=== PATIENT | male | born 1950 | race Caucasian/White ===

== ENCOUNTER 2019-06-03 02:10 | Outpatient (RCR) | payer MEDICARE, BC, SELFPAY ==
[2019-06-03] MEDS: Normal Saline Flush 10 ML SYR IVP (10:47)
[2019-06-03 10:56] LABS: Abs Immature Grans 0.01 k/cumm (0.0-0.09); Absolute Basophil Count 0.03 k/cumm (0.0-0.2); Absolute Lymphocyte Count 1.61 k/cumm (1.2-3.4); Absolute Monocyte Count 0.47 k/cumm (0.11-0.7); Absolute Neutrophil Count 4.58 k/cumm (1.2-6.7); Basophils % 0.4; Eosinophils % 2.9; HCT 41.7 % (40.0-50.0); HGB 14.1 g/dL (13.5-17.5); Immature Grans % 0.1 %; Lymphocytes % 23.3; Mean Corp. HGB Concentration 33.8 g/dL (32.0-36.0); Mean Corpuscular Hemoglobin 30.8 pg (27.0-33.0); Mean Platelet Volume 10.1 fL (8.0-11.0); Monocytes % 6.8; Neutrophils % 66.5; Platelet Count 244 x1000/uL (130-400); RBC 4.58 m/cumm (4.50-6.00); RBC Distribution Width 12.6 % (11.8-14.1)
[2019-06-03 11:16] LABS: ALT 40 U/L (16-63); AST 22 U/L (15-37); Albumin 3.8 g/dL (3.4-5.0); Alkaline Phosphatase 103 U/L (46-116); Anion Gap 7.3 mmol/L (3-11); BUN 16 mg/dL (7-18); Bilirubin, Total 0.4 mg/dL (0.2-1.0); CO2 28.7 mmol/L (21.0-32.0); CREATININE 0.92 mg/dL (0.70-1.30); Calcium 9.1 mg/dL (8.5-10.1); Chloride 104 mmol/L (98-107); Glucose 105 mg/dL (74-106); Potassium 4.1 mmol/L (3.5-5.1); Sodium 140 mmol/L (136-145); Total Protein 7.1 g/dL (6.4-8.2)
== END 2019-06-07 23:59 | disposition home or self-care (01) ==
LOC: INF 02:10
PROVIDERS: PCP Family Medicine; Visit Provider Internal Medicine Hematology & Oncology
DX: C32.9 Malignant neoplasm of larynx, unspecified (principal); Z45.2 Encounter for adjustment and management of vascular access device
CPT/HCPCS: 36591; 80053; 85025

== ENCOUNTER 2019-07-01 01:26 | Outpatient (RCR) | payer MEDICARE, BC, SELFPAY ==
[2019-06-10] MEDS: Normal Saline Flush 10 ML SYR IVP (11:45)
[2019-06-10] MEDS: Heparin 500 UNITS/5 ML SYRINGE IV (11:45)
[2019-06-10 12:05] LABS: Abs Immature Grans 0.04 k/cumm (0.0-0.09); Absolute Basophil Count 0.03 k/cumm (0.0-0.2); Absolute Eosinophil Count 0.12 k/cumm (0.0-0.7); Absolute Monocyte Count 0.39 k/cumm (0.11-0.7); Absolute Neutrophil Count 3.59 k/cumm (1.2-6.7); Basophils % 0.5; Eosinophils % 2.2; HCT 38.3 % (40.0-50.0); HGB 12.9 g/dL (13.5-17.5); Immature Grans % 0.7 %; Lymphocytes % 23.8; Mean Corp. HGB Concentration 33.7 g/dL (32.0-36.0); Mean Corpuscular Hemoglobin 30.8 pg (27.0-33.0); Mean Corpuscular Volume 91.4 fL (80-95); Mean Platelet Volume 10.5 fL (8.0-11.0); Monocytes % 7.1; Neutrophils % 65.7; Platelet Count 197 x1000/uL (130-400); RBC 4.19 m/cumm (4.50-6.00); RBC Distribution Width 12.4 % (11.8-14.1); White Blood Cell Count 5.47 k/cumm (4.4-10.8)
[2019-06-10 12:23] LABS: ALT 21 U/L (16-63); AST 14 U/L (15-37); Albumin 3.4 g/dL (3.4-5.0); Alkaline Phosphatase 82 U/L (46-116); Anion Gap 6.1 mmol/L (3-11); BUN 10 mg/dL (7-18); Bilirubin, Total 0.6 mg/dL (0.2-1.0); CO2 29.9 mmol/L (21.0-32.0); Calcium 8.9 mg/dL (8.5-10.1); Chloride 103 mmol/L (98-107); Glucose 98 mg/dL (74-106); Potassium 4.2 mmol/L (3.5-5.1); Sodium 139 mmol/L (136-145); Total Protein 6.7 g/dL (6.4-8.2)
[2019-06-17] MEDS: Normal Saline Flush 10 ML SYR IVP (12:05)
[2019-06-17 12:33] LABS: Abs Immature Grans 0.02 k/cumm (0.0-0.09); Absolute Basophil Count 0.02 k/cumm (0.0-0.2); Absolute Lymphocyte Count 1.04 k/cumm (1.2-3.4); Absolute Monocyte Count 0.33 k/cumm (0.11-0.7); Basophils % 0.5; Eosinophils % 2.6; HGB 12.6 g/dL (13.5-17.5); Immature Grans % 0.5 %; Lymphocytes % 26.6; Mean Corp. HGB Concentration 33.2 g/dL (32.0-36.0); Mean Corpuscular Hemoglobin 30.3 pg (27.0-33.0); Mean Corpuscular Volume 91.3 fL (80-95); Mean Platelet Volume 10.3 fL (8.0-11.0); Monocytes % 8.4; Neutrophils % 61.4; Platelet Count 202 x1000/uL (130-400); RBC 4.16 m/cumm (4.50-6.00); RBC Distribution Width 12.7 % (11.8-14.1); White Blood Cell Count 3.91 k/cumm (4.4-10.8)
[2019-06-17 13:27] LABS: ALT 24 U/L (16-63); AST 19 U/L (15-37); Albumin 3.5 g/dL (3.4-5.0); Alkaline Phosphatase 87 U/L (46-116); Anion Gap 6.2 mmol/L (3-11); BUN 15 mg/dL (7-18); Bilirubin, Total 0.5 mg/dL (0.2-1.0); CO2 28.8 mmol/L (21.0-32.0); CREATININE 0.91 mg/dL (0.70-1.30); Chloride 103 mmol/L (98-107); Glucose 94 mg/dL (74-106); Potassium 4.2 mmol/L (3.5-5.1); Sodium 138 mmol/L (136-145); Total Protein 6.7 g/dL (6.4-8.2)
[2019-06-24] MEDS: Normal Saline Flush 10 ML SYR IVP (09:57)
[2019-06-24] MEDS: Heparin 500 UNITS/5 ML SYRINGE IV (09:58)
[2019-06-24 10:07] LABS: Abs Immature Grans 0.02 k/cumm (0.0-0.09); Absolute Basophil Count 0.03 k/cumm (0.0-0.2); Absolute Eosinophil Count 0.05 k/cumm (0.0-0.7); Absolute Lymphocyte Count 0.67 k/cumm (1.2-3.4); Absolute Monocyte Count 0.54 k/cumm (0.11-0.7); Absolute Neutrophil Count 5.31 k/cumm (1.2-6.7); Basophils % 0.5; Eosinophils % 0.8; HCT 36.7 % (40.0-50.0); HGB 12.5 g/dL (13.5-17.5); Immature Grans % 0.3 %; Lymphocytes % 10.1; Mean Corp. HGB Concentration 34.1 g/dL (32.0-36.0); Mean Corpuscular Hemoglobin 31.3 pg (27.0-33.0); Mean Corpuscular Volume 91.8 fL (80-95); Mean Platelet Volume 9.9 fL (8.0-11.0); Monocytes % 8.2; Neutrophils % 80.1; Platelet Count 207 x1000/uL (130-400); White Blood Cell Count 6.62 k/cumm (4.4-10.8)
[2019-06-24 10:16] LABS: ALT 18 U/L (16-63); AST 15 U/L (15-37); Albumin 3.4 g/dL (3.4-5.0); Alkaline Phosphatase 84 U/L (46-116); Anion Gap 7.1 mmol/L (3-11); BUN 13 mg/dL (7-18); Bilirubin, Total 0.6 mg/dL (0.2-1.0); CO2 28.9 mmol/L (21.0-32.0); CREATININE 1.06 mg/dL (0.70-1.30); Calcium 8.7 mg/dL (8.5-10.1); Chloride 103 mmol/L (98-107); Glucose 116 mg/dL (74-106); Sodium 139 mmol/L (136-145); Total Protein 6.7 g/dL (6.4-8.2)
[2019-07-01] MEDS: Normal Saline Flush 10 ML SYR IVP (10:29)
[2019-07-01] MEDS: Heparin 500 UNITS/5 ML SYRINGE IV (10:30)
[2019-07-01 11:04] LABS: ALT 16 U/L (16-63); AST 12 U/L (15-37); Albumin 3.1 g/dL (3.4-5.0); Alkaline Phosphatase 73 U/L (46-116); Anion Gap 6.4 mmol/L (3-11); BUN 26 mg/dL (7-18); Bilirubin, Total 0.5 mg/dL (0.2-1.0); CO2 28.6 mmol/L (21.0-32.0); CREATININE 1.09 mg/dL (0.70-1.30); Calcium 8.8 mg/dL (8.5-10.1); Chloride 101 mmol/L (98-107); Glucose 102 mg/dL (74-106); Potassium 4.7 mmol/L (3.5-5.1); Sodium 136 mmol/L (136-145); Total Protein 6.7 g/dL (6.4-8.2)
[2019-07-01 12:23] LABS: Abs Immature Grans 0.01 k/cumm (0.0-0.09); Absolute Basophil Count 0.04 k/cumm (0.0-0.2); Absolute Eosinophil Count 0.05 k/cumm (0.0-0.7); Absolute Lymphocyte Count 0.57 k/cumm (1.2-3.4); Absolute Monocyte Count 1.17 k/cumm (0.11-0.7); Absolute Neutrophil Count 4.42 k/cumm (1.2-6.7); Basophils % 0.6; Eosinophils % 0.8; HCT 36.7 % (40.0-50.0); HGB 12.7 g/dL (13.5-17.5); Immature Grans % 0.2 %; Lymphocytes % 9.1; Mean Corp. HGB Concentration 34.6 g/dL (32.0-36.0); Mean Corpuscular Hemoglobin 31.7 pg (27.0-33.0); Mean Corpuscular Volume 91.5 fL (80-95); Mean Platelet Volume 10.4 fL (8.0-11.0); Monocytes % 18.7; Neutrophils % 70.6; Platelet Count 214 x1000/uL (130-400); RBC 4.01 m/cumm (4.50-6.00); RBC Distribution Width 13.2 % (11.8-14.1); White Blood Cell Count 6.26 k/cumm (4.4-10.8)
== END 2019-07-06 23:59 | disposition home or self-care (01) ==
LOC: INF 01:26
PROVIDERS: PCP Family Medicine; Visit Provider Internal Medicine Hematology & Oncology
DX: C32.9 Malignant neoplasm of larynx, unspecified (principal); Z45.2 Encounter for adjustment and management of vascular access device
CPT/HCPCS: 36591; 80053; 85025

== ENCOUNTER 2019-07-22 01:02 | Outpatient (RCR) | payer MEDICARE, BC, SELFPAY ==
[2019-07-08 11:56] LABS: Abs Immature Grans 0.01 k/cumm (0.0-0.09); Absolute Basophil Count 0.04 k/cumm (0.0-0.2); Absolute Eosinophil Count 0.08 k/cumm (0.0-0.7); Absolute Lymphocyte Count 0.54 k/cumm (1.2-3.4); Absolute Monocyte Count 0.65 k/cumm (0.11-0.7); Absolute Neutrophil Count 3.94 k/cumm (1.2-6.7); Basophils % 0.8; Eosinophils % 1.5; HCT 35.4 % (40.0-50.0); HGB 12.1 g/dL (13.5-17.5); Immature Grans % 0.2 %; Lymphocytes % 10.3; Mean Corp. HGB Concentration 34.2 g/dL (32.0-36.0); Mean Corpuscular Hemoglobin 31.1 pg (27.0-33.0); Mean Platelet Volume 9.5 fL (8.0-11.0); Monocytes % 12.4; Neutrophils % 74.8; Platelet Count 222 x1000/uL (130-400); RBC 3.89 m/cumm (4.50-6.00); RBC Distribution Width 13.4 % (11.8-14.1); White Blood Cell Count 5.26 k/cumm (4.4-10.8)
[2019-07-08 12:05] LABS: ALT 22 U/L (16-63); AST 14 U/L (15-37); Albumin 2.9 g/dL (3.4-5.0); Alkaline Phosphatase 74 U/L (46-116); BUN 19 mg/dL (7-18); Bilirubin, Total 0.3 mg/dL (0.2-1.0); CREATININE 0.89 mg/dL (0.70-1.30); Calcium 8.8 mg/dL (8.5-10.1); Chloride 101 mmol/L (98-107); Glucose 109 mg/dL (74-106); Potassium 4.1 mmol/L (3.5-5.1); Sodium 137 mmol/L (136-145); Total Protein 6.6 g/dL (6.4-8.2)
[2019-07-08] MEDS: Normal Saline Flush 10 ML SYR IVP (13:35)
[2019-07-08] MEDS: Heparin 500 UNITS/5 ML SYRINGE IV (13:36)
[2019-07-15] MEDS: Heparin 500 UNITS/5 ML SYRINGE IV (10:30)
[2019-07-15] MEDS: Normal Saline Flush 10 ML SYR IVP (11:25)
[2019-07-15 12:00] LABS: Abs Immature Grans 0.01 k/cumm (0.0-0.09); Absolute Basophil Count 0.01 k/cumm (0.0-0.2); Absolute Eosinophil Count 0.02 k/cumm (0.0-0.7); Absolute Lymphocyte Count 0.38 k/cumm (1.2-3.4); Absolute Monocyte Count 0.59 k/cumm (0.11-0.7); Absolute Neutrophil Count 2.89 k/cumm (1.2-6.7); Basophils % 0.3; Eosinophils % 0.5; HCT 33.3 % (40.0-50.0); HGB 11.1 g/dL (13.5-17.5); Immature Grans % 0.3 %; Lymphocytes % 9.7; Mean Corp. HGB Concentration 33.3 g/dL (32.0-36.0); Mean Corpuscular Hemoglobin 30.7 pg (27.0-33.0); Mean Corpuscular Volume 92.2 fL (80-95); Mean Platelet Volume 9.6 fL (8.0-11.0); Monocytes % 15.1; Neutrophils % 74.1; Platelet Count 224 x1000/uL (130-400); RBC 3.61 m/cumm (4.50-6.00); RBC Distribution Width 14.1 % (11.8-14.1)
[2019-07-15 12:15] LABS: ALT 21 U/L (16-63); AST 11 U/L (15-37); Albumin 2.8 g/dL (3.4-5.0); Alkaline Phosphatase 71 U/L (46-116); Anion Gap 3.3 mmol/L (3-11); BUN 17 mg/dL (7-18); Bilirubin, Total 0.2 mg/dL (0.2-1.0); CO2 32.7 mmol/L (21.0-32.0); CREATININE 0.81 mg/dL (0.70-1.30); Calcium 8.9 mg/dL (8.5-10.1); Chloride 104 mmol/L (98-107); Glucose 85 mg/dL (74-106); Potassium 4.1 mmol/L (3.5-5.1); Sodium 140 mmol/L (136-145); Total Protein 6.3 g/dL (6.4-8.2)
[2019-07-22] MEDS: Heparin 500 UNITS/5 ML SYRINGE IV (11:32)
[2019-07-22] MEDS: Normal Saline Flush 10 ML SYR IVP (11:32)
[2019-07-22 11:41] LABS: Absolute Eosinophil Count 0.03 k/cumm (0.0-0.7); Absolute Lymphocyte Count 0.49 k/cumm (1.2-3.4); Absolute Monocyte Count 0.52 k/cumm (0.11-0.7); Eosinophils % 1.2; HCT 33.7 % (40.0-50.0); HGB 11.5 g/dL (13.5-17.5); Lymphocytes % 19.3; Mean Corp. HGB Concentration 34.1 g/dL (32.0-36.0); Mean Corpuscular Hemoglobin 31.9 pg (27.0-33.0); Mean Corpuscular Volume 93.6 fL (80-95); Mean Platelet Volume 9.2 fL (8.0-11.0); Monocytes % 20.5; Platelet Count 190 x1000/uL (130-400); RBC Distribution Width 15.2 % (11.8-14.1); White Blood Cell Count 2.54 k/cumm (4.4-10.8)
[2019-07-22 11:57] LABS: ALT 28 U/L (16-63); AST 14 U/L (15-37); Albumin 2.8 g/dL (3.4-5.0); Alkaline Phosphatase 73 U/L (46-116); BUN 18 mg/dL (7-18); Bilirubin, Total 0.2 mg/dL (0.2-1.0); Calcium 8.6 mg/dL (8.5-10.1); Chloride 105 mmol/L (98-107); Glucose 112 mg/dL (74-106); Potassium 3.6 mmol/L (3.5-5.1); Sodium 142 mmol/L (136-145); Total Protein 6.6 g/dL (6.4-8.2)
== END 2019-08-06 23:59 | disposition home or self-care (01) ==
LOC: INF 01:02
PROVIDERS: PCP Family Medicine; Visit Provider Internal Medicine Hematology & Oncology
DX: C32.9 Malignant neoplasm of larynx, unspecified (principal); Z45.2 Encounter for adjustment and management of vascular access device
CPT/HCPCS: 36591; 80053; 85025

== ENCOUNTER 2020-02-24 01:19 | Outpatient (CLI) | payer MEDICARE, BC, SELFPAY ==
--- NOTE | 2020-02-24 | DI.RAD_ITS ---
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 CONTRAST MATERIAL: Oral barium contrast was administered. COMPARISON: No exams were available for comparison FINDINGS: Multiple consistencies of barium were administered. Some molecular pooling was seen with all consis tencies. There was laryngeal penetration with all consistencies. Scott aspiration was observed with thinner consistency. The patient swallowed a barium tablet without difficulty, which passed into th e stomach. Speech pathology report to follow. IMPRESSION: Laryngeal penetration and aspiration, worse with thinner consistency barium. Please see speech patho logy report. Fluoro Time: 2 minutes 40 seconds
[2020-02-24] MEDS: Barium Sulfate 81% w/w for Oral Suspension 148 GM BTL PO (14:53)
[2020-02-24] MEDS: Barium Sulfate 40% W/V 240 ML BTL PO (14:54)
[2020-02-24] MEDS: Barium Sulfate 700 MG TAB PO (14:55)
[2020-02-24] MEDS: Barium Sulfate Oral Paste 40% W/V 230 ML TUBE PO (14:55)
--- NOTE | 2020-03-24 12:57 | ST.MBS ---
Modified Barium Swallow Date of service: 02/24/20 Study Findings: Ordering Provider: Frantz Gonzales Admission Date: 02/24/20 : 1950 Age: 70 HPI: Patient is a 70-year-old male, referred for an VFSS/MBSS to assess oropharyngeal swallowing ability. 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 (See report dated 02/19/20 for further details) Subjective: Patient reports reduced pain near pharynx relative to initial evaluation with this UTILITY LOCATE TECHNICIAN at [facility] on 02/18. Patient reports improving taste, however continues to have difficulties with his vocal quality and consistent coughing after swallowing. Patient endorses the following as continuing overt s/sx: Nasal regurgitation with increased volume of intake, coughing pills if taken multiple at a time, indicates salads, celery nuts, popcorn, and majority of red meats are difficult to swallow; ice cream, pudding, warm soup, and most drinks are easy to swallow. Patient indicates globus sensation and gestures towards pharyngeal area with intake of most solid foods. Patient has feeding tube present, however is eager to get this removed, as he is not currently using it. MDADI: Global score: 4 Scores range from 1-5 (extremely low functioning to extremely high functioning) Composite score: 58.9 Scores range from 20-100 (extremely low functioning to high functioning) Objective: Videofluoroscopic Swallow Study (VFSS) was conducted in the lateral and [id number] projections by Speech-Language Pathologist, in collaboration with Radiologist, to evaluate oropharyngeal swallow function. Fluoro Time: 2 minutes 40 seconds Anatomic view under fluoroscopy: WFL PO barium contrast trials: Oral barium Oral water soluble contrast was administered. Specifically, Varibar thin liquid (40% w/v), Varibar nectar/mildly thick liquid (40% w/v), Varibar thin honey (moderately-thick) liquid (40% w/v), Varibar pudding (40% w/v), solid coated in Varibar pudding, and 13 mm barium tablet. Oral phase findings: Lip closure: 0-no labial escape Tongue control: 0-cohesive bolus between tongue to palatal seal Bolus preparation: 1-slow, prolonged chewing/mashing with complete recollection Bolus transport/Lingual Motion: 0-brisk tongue motion Oral residue: 0-complete oral clearance Pharyngeal phase findings: Initiation of swallow: 1-bolus had in the vallecula Velar elevation: 1-trace column of contrast between SP and PW Laryngeal elevation: 2-minimal superior movement of thyroid cartilage w minimal approximation of arytenoids to epiglottic petiole Anterior hyoid excursion: 1-partial (very minimal) anterior movement Epiglottic movement: 1-partial inversion Laryngeal vestibule closure: 2-none; mild column of contrast in the laryngeal vestibule Pharyngeal stripping wave: 0-[id number]-[id number] Pharyngeal contraction: 2-unilateral bulging on left PES openin-partial duration/partial distention; partial obstruction of flow BOT retraction: 1-trace column of contrast between TV and PW Pharyngeal residue: 2F-collection of residue within or on pharyngeal structures, specifically B-vallecula, D-aryepiglottic folds, ED pyriform sinuses (>3 areas) Esophageal findings: NOTE: This study was performed for interpretation only of the oropharyngeal and pharyngoesophageal domains of swallowing. It is not intended to diagnose any other radiologic abnormalities or substitute for a formal esophagram study. Esophageal clearance: 0-complete clearance; esophageal coating 8-point Penetration-Aspiration Scale (PAS) [place] Pharyngeal Residue Severity Rating Scale [Valleculae/Pyriform Sinus] IDDSI Level: 0 - Thin liquid via tsp PAS: 6 [place]: 3/4 via cup sip PAS: 7 [place]: /5 2 - Mildly Thick PAS: 6 [place]: 09/08 3- Moderately thick/Liquidised PAS: 0 [place]: 5/ 4 - Extremely Thick/Pureed PAS: 0 [place]: 5/ 7 - Regular PAS: 7 [place]: 5/ 13mm barium pill + thin liquid via cup sip PAS: 6 [place]: 09/09 *Unable to view entirety of swallow sequence briefly as patient moved head posteriorly/out of view Compensatory Swallow Strategies: Reduced bolus volume - successful; reduced likelihood of prandial aspiration; if aspirated, able to clear with cough in majority of trials Reduced rate of intake - somewhat successful; reduced likelihood of prandial aspiration Secondary swallow x1 - mildly successful in clearing vallecular/PS residue Secondary swallow x2 - moderately successful in clearing vallecular/PS residue Secondary swallow x3 - moderately successful in clearing vallecular/PS residue Secondary swallow x4 - significant reduction in vallecular/PS residue [place] liquid wash - unsuccessful in clearing vallecular residue Dysphagia Outcome and Severity Scale ([place]ORETTA): 2/3 - moderate to moderate-severe pharyngeal dysphagia Assessment: Swallow efficiency is impaired, however mildly improved relative to previous VFSS/MBSS; swallow safety is also impaired. Patient demonstrates moderate to moderate to severe pharyngeal dysphagia ([place] 2/3) characterized by delayed swallow initiation, reduced velar elevation, reduced laryngeal elevation, reduced anterior hyoid excursion, reduced epiglottic movement, reduced laryngeal vestibule closure, reduced pharyngeal stripping wave, reduced pharyngeal contraction, reduced PES opening, reduced tongue base retraction, resulting in both vallecular and pyriform sinus residue with all trialed consistencies; incomplete laryngeal vestibule closure resulted in laryngeal penetration with most trialed consistencies; prandial aspiration noted with most trialed consistencies except for IDDSI levels 3/4 (liquidized/puree); with IDDSI Level 0 (thin liquids), prandial aspiration is observed during the swallow via cup sip; however, with reduced volume (to 5 ml) and reduced rate of intake, material enters the airway, passes below the vocal folds, and is ejected either superiorly into the larynx or completely out of the airway; with IDDSI Level 7 (regular solids), prandial aspiration is observed after the swallow from severe vallecular residue; dysphagia presentation likely due to late effects of radiation treatment s/p larynx cancer. Swallow prognosis is fair, pending patient training in effective swallowing strategies and MDTP swallow exercise program as outlined; prognosis likely to also improve with participation in smoking cessation program to address pulmonary function. Plan: Diet recommendation: Discussed rationale for previously recommended diet modifications (i.e., thinned/moist pur?e, thin liquids via tsp) and current discussion of IDDSI Level level 5-minced and moist textures, level 0-thin liquids with compensatory safe swallowing strategies as outlined per motivational interview with patient. Patient is aware of risks related to intake of textures outside of recommendations as reviewed today. Diet modification is per patient's preference at this time; patient verbalizes wish to continue counseling re: risk management outside of diet texture modifications. Risk management: Behavioral reflux precautions, including upright position during +90 minutes after meals. Small bites/sips, alternate solid/liquid as able, at slow rate of intake Multiple swallows per bolus (i.e., 1 additional sip of thin liquids via tsp + 4-6 additional dry swallows to clear pharyngeal residue) Cough + re-swallow with drinks of thin liquids via cup sip Control risk factors for aspiration pneumonia via (a) oral hygiene and (b) maintaining physical mobility as tolerated Smoking cessation Specialist referrals: RD to address nutritional management as appropriate, OT per patient preference to address energy conservation Ancillary tests: N/A Therapy: Recommend subsequent outpatient session with UTILITY LOCATE TECHNICIAN to review results of today's exam and develop treatment plan as appropriate. May address the following: MDTP, RMST, counseling/education on risk management, communicate benefits of continuing with smoking cessation program and outcomes with swallowing treatment(s) as reviewed Goal: N/A Follow-up exam: N/A Thank you for allowing me to take part in this patient's care. Please feel free to contact me with any questions/concerns. Roro Mae MA CCC-UTILITY LOCATE TECHNICIAN Speech Language Pathologist [phone] UTILITY LOCATE TECHNICIAN Service Code(s): Modified Barium Swallow Study 57193
== END 2020-02-24 01:39 ==
PROVIDERS: Visit Provider Preventive Medicine Undersea and Hyperbaric Medicine
DX: C32.9 Malignant neoplasm of larynx, unspecified (principal)
CPT/HCPCS: 92526; 74221; J3490

== ENCOUNTER 2020-07-13 01:48 | Outpatient (CLI) | payer MEDICARE, BC, SELFPAY ==
[2020-07-13] MEDS: Omnipaque 350 MG/ML 100 ML BTL IJ (13:36)
[2020-07-13] MEDS: Normal Saline - Diluent 50 ML VIAL IV (13:37)
[2020-07-13] MEDS: Normal Saline Flush 10 ML SYR IVP (13:37)
--- NOTE | 2020-07-13 13:45 | DI.CT_ITS ---
EXAM: CT NECK W CLINICAL HISTORY: LARYNX CA,C32.9,S/P CHEMO,ASSESS FOR RECURRENCE. TECHNIQUE: Imaging Protocol: Axial computed tomography images with coronal and sagittal reformatted images were created and reviewed CONTRAST MATERIAL: Intravenous: Omnipaque 350 Contrast volume 100 ml Contrast route:IV - Oral: / no COMPARISON: CT,PT NM PET CT STANDARD PLUS HEAD AND NECK from 02/03/2020 CT,PT NM PET CT STANDARD PLUS HEAD AND NECK from 02/03/2020 FINDINGS: Parotids/submandibular/thyroid gland: Normal. Lymphadenopathy: There is scattered lymph nodes seen along the level one to level three all measurin g less than 8 mm in short axis diameter which are physiologic in nature. Carotids/Jugular: Plaque at both common carotid bulbs. No significant stenosis. Soft tissues: The floor the mouth is unremarkable. The epiglottis is within normal limits. No laryngeal mass is visible. Images through both lung apices show mild emphysematous and fibrotic changes. Bones: Degenerative disc changes and facet degenerative changes Sinuses, orbits, mastoid air cells as well as visualized portions of the brain are unremarkable. IMPRESSION: No visible recurrence laryngeal mass. No evidence adenopathy. RADIATION DOSE DELIVERED: 411.95mGy.cm Total DLP DATA REPOSITORY: All CT scans at this facility are submitted to the National Radiology Data Registry (NRDR) Dose Index Registry (DIR) with the [employer] (ACR). RADIATION OPTIMIZATION: All CT scans at this facility use at least one of these dose optimization te chniques: automated exposure control; mA and/or kV adjustment per patient size (includes targeted exa ms where dose is matched to clinical indication); or iterative reconstruction.
== END 2020-07-13 02:08 ==
PROVIDERS: Visit Provider Preventive Medicine Undersea and Hyperbaric Medicine
DX: C32.9 Malignant neoplasm of larynx, unspecified (principal); Z92.21 Personal history of antineoplastic chemotherapy
CPT/HCPCS: 36591; 70491; 82565; J3490

== ENCOUNTER 2020-07-13 03:34 | Outpatient (RCR) | payer MEDICARE, BC, SELFPAY ==
[2020-07-13] MEDS: Heparin 500 UNITS/5 ML SYRINGE IV (12:10)
[2020-07-13] MEDS: Normal Saline Flush 10 ML SYR IVP (12:10)
[2020-07-13 12:30] LABS: CREATININE 0.8 mg/dL (0.70-1.30)
== END 2020-08-05 23:59 | disposition home or self-care (01) ==
LOC: INF 03:34
PROVIDERS: Visit Provider Preventive Medicine Undersea and Hyperbaric Medicine
DX: C32.9 Malignant neoplasm of larynx, unspecified (principal); Z45.2 Encounter for adjustment and management of vascular access device
CPT/HCPCS: 36591; 82565

== ENCOUNTER 2024-01-07 14:50 | Emergency (ER) | payer MEDICARE, BC, SELFPAY ==
--- NOTE | 2024-01-07 14:45 | DI.RAD_ITS ---
Exam(s) XR SHOULDER LT COMPLETE 2+V EXAM: XR SHOULDER LT COMPLETE 2+V CLINICAL HISTORY: Left shoulder pain. TECHNIQUE: 2D digital imaging was performed. COMPARISON: No exams were available for comparison FINDINGS: 3 views No evidence of acute fracture or dislocation nor diminution of the subacromial space. However, there are moderate-advanced osteoarthritic degenerative changes in the glenohumeral joint. There also 2 c alcific densities lateral to the humeral head. These may be within the subdeltoid bursa or possibly within the belong head biceps tendon sheath. Bone density otherwise normal. Moderate degenerative change also noted in the AC joint. IMPRESSION: Significant osteoarthritic degenerative changes in the glenohumeral joint. Two soft tissue calcifications in the tissues adjacent to the humeral head-neck which are either with in the biceps tendon sheath or subdeltoid bursa. DATA REPOSITORY: RADIATION DOSE DELIVERED:
--- NOTE | 2024-01-07 14:45 | DI.CT_ITS ---
Exam(s) CT HEAD WO EXAM: CT HEAD WO CLINICAL HISTORY: Fall. TECHNIQUE: Imaging Protocol: Axial computed tomography images with coronal and sagittal reformatted images were created and reviewed COMPARISON: No exams were available for comparison FINDINGS: There are no skull fractures. There is no fluid in the visualized paranasal sinuses. There is no evidence of intracranial hemorrhage, mass effect, or shift of midline structures. There are no extra-axial fluid collections. The ventricles are not enlarged or shifted and there is no blo od within the ventricular system nor within the basal cisterns. IMPRESSION: No acute intracranial findings on this noninfused CT scan of the brain. Called by myself to ER 01/07/2024 4:01 p.m. RADIATION DOSE DELIVERED: 895.99mGy.cm Total DLP DATA REPOSITORY: All CT scans at this facility are submitted to the National Radiology Data Registry (NRDR) Dose Index Registry (DIR) with the [employer] (ACR). RADIATION OPTIMIZATION: All CT scans at this facility use at least one of these dose optimization te chniques: automated exposure control; mA and/or kV adjustment per patient size (includes targeted exa ms where dose is matched to clinical indication); or iterative reconstruction.
--- NOTE | 2024-01-07 14:45 | DI.RAD_ITS ---
Exam(s) XR CHEST 2V PA LATERAL EXAM: XR CHEST 2V PA LATERAL CLINICAL HISTORY: Fall. TECHNIQUE: 2D digital imaging was performed. COMPARISON: No exams were available for comparison FINDINGS: 2 views: Heart size is normal. The mediastinum is not widened. There is some hyperinflation of the lung esquivel but no infiltrates nor pleural effusions. No pulmona ry edema. No fracture seen. There is evidence of previous surgery in the right shoulder probably ro tator cuff and there is advanced diminution of the subacromial space in the right shoulder which prob ably indicates full-thickness rotator cuff tear IMPRESSION: No acute pulmonary findings.Bilateral hyperinflation Right shoulder findings as above including evidence of prior surgery and probable full-thickness rota tor cuff pathology, given the advanced narrowing of the subacromial space. DATA REPOSITORY: RADIATION DOSE DELIVERED:
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
[2024-01-07 14:53] VITALS: BP 173/91; PULSE 98; RESP 16; TEMP 36.9; O2SAT 97
[2024-01-07] MEDS: Acetaminophen 500 MG TAB 1000 MG PO (16:10)
--- NOTE | 2024-01-07 16:55 | NUR.NOTE ---
I spoke with the daughter, Bindu. Patient is returning home to [place], [place]. The patient states his PCP is at [facility], but does not remember the name and the daughter does not know it either. Please send referral to PCP. concern for left shoulder rotator cuff injury to be seen in 1 week. Nursing Note:
== END 2024-01-07 16:11 | disposition home or self-care (01) ==
PROVIDERS: Emergency Provider Emergency Medicine
DX: M25.512 Pain in left shoulder (principal); V86.09XA Driver of other special all-terrain or other off-road motor vehicle injured in traffic accident, initial encounter; Y93.89 Activity, other specified; Y92.89 Other specified places as the place of occurrence of the external cause
CPT/HCPCS: 99284; 70450; 71046; 73030

== ENCOUNTER 2025-04-14 14:31 | Emergency (ER) | payer MEDICARE, BC, SELFPAY ==
[2025-04-14] VITALS (9 sets, daily range): BP systolic 123; BP diastolic 74; PULSE 86–117; RESP 18–25; TEMP 37.2; O2SAT 88–93
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
[2025-04-14] MEDS: ACETAMINOPHEN 1,000 MG/100 ML BAG 400 MG IVPB (15:27)
[2025-04-14] MEDS: methylPREDNISolone SUCC 125 MG VIAL IVP (15:27)
[2025-04-14] MEDS: Albuterol/Ipratropium 3 ML UPD VIAL UPD (15:27)
[2025-04-14] MEDS: Ketorolac 15 MG/ML VIAL IVP (15:27)
[2025-04-14] MEDS: Normal Saline 1,000 ML 1000 ML IV (15:28)
[2025-04-14 15:41] LABS: BE (Venous) 12 mmol/L (-2-3); HCO3 (Venous) 37 mmol/L (23-28); O2 Sat (Venous) 34 %; TCO2 (Venous) 34 mmol/L (24-29); pCO2 (Venous) 60 mmHg (41-51); pO2 (Venous) 21 mmHg
[2025-04-14 15:42] LABS: Abs Immature Grans 0.07 10^3/uL (0.0-0.06); HCT 39.3 % (40.0-50.0); HGB 12.4 g/dL (13.5-17.5); Immature Grans % 0.7 %; MCH 28.7 pg (27.0-33.0); MCHC 31.6 % (32.0-36.0); MCV 91 fL (80-95); MPV 9.2 fL (8.0-11.0); Platelet Count 393 10^3/uL (130-400); RBC 4.32 10^6/uL (4.36-5.78); RDW 12.9 % (11.8-14.1); RDW-SD 42.8 fL; WBC 10.62 10^3/uL (4.4-10.8)
[2025-04-14 16:02] LABS: Magnesium 2.1 mg/dL (1.6-2.6); Troponin I 6 ng/L (<54)
[2025-04-14 16:03] LABS: ALT 20 U/L (10-49); AST 21 U/L (<34); Albumin 3.7 g/dL (3.2-5.0); Alkaline Phosphatase 99 U/L (46-116); Anion Gap 5 mmol/L (3-11); BUN 10 mg/dL (9-23); Bilirubin, Total 0.40 mg/dL (0.2-1.2); CO2 36.0 mmol/L (20.0-31.0); Calcium 10.0 mg/dL (8.3-10.6); Chloride 101 mmol/L (98-107); Glucose 116 mg/dL (74-106); Potassium 3.9 mmol/L (3.5-5.1); Sodium 142 mmol/L (136-145); Total Protein 7.7 g/dL (5.7-8.2)
[2025-04-14 17:14] LABS: Troponin I 6 ng/L (<54)
[2025-04-14] MEDS: MORPHine IR 15 MG TAB PO (18:23)
== END 2025-04-14 18:27 | disposition home or self-care (01) ==
PROVIDERS: Emergency Provider Emergency Medicine
DX: J44.1 Chronic obstructive pulmonary disease with (acute) exacerbation (principal); S22.20XA Unspecified fracture of sternum, initial encounter for closed fracture; V48.0XXA Car driver injured in noncollision transport accident in nontraffic accident, initial encounter
CPT/HCPCS: 99284; 99285; 36415; 94640; 96375; 71250; 80053; 82805; 93005; 96361; 96365; 70450; 72125; 83735; 84484; 85025; 93010; J0131; J1885; J2919; J7620